=== PATIENT | female | born 1960 | race Caucasian/White ===

== ENCOUNTER 2017-06-10 17:32 | Inpatient (IN) | payer MEDICAID, OTHER ==
[~2017-06-10] VITALS: Ht 160 cm; Wt 47.2 kg
[~2017-06-10 17:32] MED LIST: QUET50XR PO; TRAZ-144 PO
[2017-06-10 19:00] LABS: BASOPHILS % (AUTO) 0.8 % (0.0-2.0); EOSINOPHILS % (AUTO) 1.5 % (1.0-6.0); HEMATOCRIT 38.4 % (36-46); HEMOGLOBIN 13.2 g/dL (12.0-16.0); LYMPHOCYTES # (AUTO) 3.6 K/uL (1.0-4.8); LYMPHOCYTES % (AUTO) 50.9 % (22.0-44.0); MEAN CORPUSCULAR HEMOGLOBIN 34.8 pg (26.0-34.0); MEAN CORPUSCULAR HGB CONC 34.3 G/dL (31.0-37.0); MEAN CORPUSCULAR VOLUME 101 fL (80-100); MONOCYTES # (AUTO) 0.5 K/uL (0.1-1.0); MONOCYTES % (AUTO) 7.6 % (2.0-9.0); NEUTROPHILS # (AUTO) 2.7 K/uL (1.8-7.7); NEUTROPHILS % (AUTO) 39.2 % (40.0-70.0); PLATELET COUNT (AUTO) 298 K/uL (150-450); RED BLOOD CELL COUNT(AUTO) 3.79 MIL/uL (4.00-5.20); RED CELL DISTRIBUTION WIDTH 13.8 % (11.5-14.5)
[2017-06-10] MEDS ORDERED: DiphenhydrAMINE HCL 50 MG/ML VIAL IM ONE (19:15)
[2017-06-10] MEDS ORDERED: LORazepam 2 MG/ML VIAL IM ONE (19:15)
[2017-06-10] MEDS ORDERED: HALOPERIDOL LACTATE 5 MG/ML VIAL IM ONE (19:15)
[2017-06-10 19:35] LABS: ANION GAP 12 mmol/L (8-16); CALCIUM, TOTAL 8.6 mg/dL (8.8-10.5); CARBON DIOXIDE 23 mmol/L (22-29); CHLORIDE 106 mmol/L (98-107); CREATININE 0.75 mg/dL (0.60-1.30); GLOMERULAR FILTR. RATE CALC > 60 mL/min (>60); POTASSIUM 3.4 mmol/L (3.5-5.1); SODIUM SERUM 141 mmol/L (136-145); UREA NITROGEN, BLOOD 12 mg/dL (7-18)
[2017-06-10 19:43] LABS: ALANINE AMINOTRANSFERASE 100 U/L (12-78); ALBUMIN 3.6 g/dL (3.4-5.0); ASPARTATE AMINOTRANSFERASE 191 U/L (15-37); BILIRUBIN,TOTAL 0.3 mg/dL (0.1-1.0); TOTAL PROTEIN, SERUM 7.8 g/dL (6.4-8.2)
[2017-06-10 20:26] LABS: RBC MORPHOLOGY COMMENT ABNORMAL RBC MORPH
[2017-06-10] MEDS ORDERED: HALOPERIDOL 5 MG TABLET PO PRN (20:45)
[2017-06-10] MEDS ORDERED: ZOLPIDEM TARTRATE 10 MG TABLET PO PRN (20:45)
[2017-06-10 21:13] LABS: CHOL/HDL RATIO 1.8 (3.9-5.7); THYROID STIMULATING HORMONE 1.03 uIU/mL (0.36-3.74)
[2017-06-10 23:00] VITALS: BP 121/57
[2017-06-11 03:00] VITALS: BP 123/74
[2017-06-11] MEDS ORDERED: POTASSIUM CHLORIDE 20 MEQ ER TABLET PO ONE (06:30)
[2017-06-11 07:11] VITALS: BP 128/60
[2017-06-11 08:11] VITALS: BP 127/76
[2017-06-11 19:00] VITALS: BP 129/75
[2017-06-11 23:01] VITALS: BP 100/61
[2017-06-12 08:25] VITALS: BP 124/81
[2017-06-12 08:43] LABS: ALANINE AMINOTRANSFERASE 74 U/L (12-78); ALBUMIN 3.3 g/dL (3.4-5.0); ANION GAP 9 mmol/L (8-16); ASPARTATE AMINOTRANSFERASE 96 U/L (15-37); BILIRUBIN,TOTAL 0.5 mg/dL (0.1-1.0); CALCIUM, TOTAL 8.7 mg/dL (8.8-10.5); CARBON DIOXIDE 27 mmol/L (22-29); CHLORIDE 104 mmol/L (98-107); CREATININE 0.57 mg/dL (0.60-1.30); GLOMERULAR FILTR. RATE CALC > 60 mL/min (>60); POTASSIUM 4.7 mmol/L (3.5-5.1); SODIUM SERUM 140 mmol/L (136-145); TOTAL PROTEIN, SERUM 7.1 g/dL (6.4-8.2); UREA NITROGEN, BLOOD 12 mg/dL (7-18)
[2017-06-12] MEDS: IBUPROFEN 400 MG TABLET PO PRN (13:44)
[2017-06-12] MEDS: LORazepam 2 MG TABLET PO PRN (15:53)
[2017-06-12 16:05] VITALS: BP 142/96
[2017-06-13 05:59] VITALS: BP 126/76
[2017-06-13] MEDS: IBUPROFEN 400 MG TABLET PO PRN ×2 (06:07→17:46)
[2017-06-13] MEDS: RisperiDONE 1 MG TABLET PO SCH ×2 (08:08→16:01)
[2017-06-13] MEDS: LORazepam 2 MG TABLET PO PRN ×2 (08:11→16:02)
[2017-06-13 08:50] VITALS: BP 127/72
[2017-06-13 10:09] LABS: APPEARANCE,URINE CLEAR (CLEAR); GLUCOSE, URINE (UA) NEGATIVE (NEGATIVE); KETONES,URINE NEGATIVE (NEGATIVE); LEUKOCYTE ESTERASE ,URINE NEGATIVE (NEGATIVE); OCCULT BLOOD,URINE NEGATIVE (NEGATIVE); PROTEIN,URINE NEGATIVE (NEGATIVE)
[2017-06-13 10:25] LABS: ADD UA MICROSCOPIC NO
[2017-06-13 16:36] VITALS: BP 110/76
[2017-06-13] MEDS ORDERED: LORazepam 2 MG TABLET PO PRN (20:45)
[2017-06-14 00:10] VITALS: BP 125/71
[2017-06-14] MEDS: ACETAMINOPHEN 325 MG TABLET PO PRN (00:12)
[2017-06-14] MEDS: LORazepam 2 MG TABLET PO PRN ×3 (02:16→18:41)
[2017-06-14 08:06] VITALS: BP 133/72
[2017-06-14] MEDS: RisperiDONE 1 MG TABLET PO SCH ×2 (08:14→16:23)
[2017-06-14] MEDS ORDERED: RISP1 PO (12:41)
[2017-06-14] MEDS: NICOTINE 14 MG/24 HOUR PATCH TD SCH (14:07)
[2017-06-14 16:07] VITALS: BP 109/58
[2017-06-15 02:49] VITALS: BP 126/78
[2017-06-15] MEDS: LORazepam 2 MG TABLET PO PRN ×3 (03:35→13:03)
[2017-06-15] MEDS: IBUPROFEN 400 MG TABLET PO PRN (03:35)
[2017-06-15] MEDS: ACETAMINOPHEN 325 MG TABLET PO PRN (06:54)
[2017-06-15 08:08] VITALS: BP 118/60
[2017-06-15] MEDS: NICOTINE 14 MG/24 HOUR PATCH TD SCH (08:17)
[2017-06-15] MEDS: RisperiDONE 1 MG TABLET PO SCH ×2 (08:17→16:09)
[2017-06-15 16:00] VITALS: BP 111/68
[2017-06-16 02:53] VITALS: BP 116/64
[2017-06-16] MEDS: IBUPROFEN 400 MG TABLET PO PRN ×2 (03:00→11:50)
[2017-06-16] MEDS: RisperiDONE 1 MG TABLET PO SCH (08:42)
[2017-06-16] MEDS: NICOTINE 14 MG/24 HOUR PATCH TD SCH (08:43)
[2017-06-16 09:31] VITALS: BP 131/95
[2017-06-16 11:45] VITALS: BP 128/85
== END 2017-06-16 18:33 | disposition home or self-care (01) | DRG 750 ==
LOC: EMS 17:36 → B3A 21:52
PROVIDERS: ADMIT Psychiatry & Neurology Psychiatry; ATTEND Psychiatry & Neurology Psychiatry
DX: F20.0 Paranoid schizophrenia (principal); R74.0 Nonspecific elevation of levels of transaminase and lactic acid dehydrogenase [LDH]; E87.6 Hypokalemia; F41.9 Anxiety disorder, unspecified; F17.210 Nicotine dependence, cigarettes, uncomplicated; F10.10 Alcohol abuse, uncomplicated; Z79.899 Other long term (current) drug therapy; Z71.6 Tobacco abuse counseling; Z71.41 Alcohol abuse counseling and surveillance of alcoholic
CPT/HCPCS: 80307; 84443; 96372; 99285; G0480; J1200; J1630; J2060

== ENCOUNTER 2017-06-27 13:37 | Inpatient (IN) | payer MEDICAID ==
[~2017-06-27] VITALS: Ht 160 cm; Wt 48.7 kg
[~2017-06-27 13:37] MED LIST changes: -QUET50XR PO; +RISP1 PO; -TRAZ-144 PO
[2017-06-27] MEDS ORDERED: HALOPERIDOL 5 MG TABLET PO PRN (14:15)
[2017-06-27 15:15] VITALS: BP 135/77
[2017-06-27 16:00] VITALS: BP 139/77
[2017-06-27] MEDS ORDERED: INFLUENZA VIRUS VACCINE QVS 2017-18 (3YR+)/PF 60 MCG/0.5 ML SYRINGE IM ONE (16:15)
[2017-06-27] MEDS: RisperiDONE 1 MG TABLET PO SCH (16:42)
[2017-06-27] MEDS: LORazepam 2 MG TABLET PO PRN (16:42)
[2017-06-27] MEDS: ACETAMINOPHEN 325 MG TABLET PO PRN (17:45)
[2017-06-28 00:15] VITALS: BP 111/62
[2017-06-28] MEDS: ACETAMINOPHEN 325 MG TABLET PO PRN ×2 (07:00→16:48)
[2017-06-28 07:59] LABS: BASOPHILS % (AUTO) 1.2 % (0.0-2.0); EOSINOPHILS % (AUTO) 1.2 % (1.0-6.0); HEMATOCRIT 37.1 % (36-46); HEMOGLOBIN 12.7 g/dL (12.0-16.0); LYMPHOCYTES # (AUTO) 2.1 K/uL (1.0-4.8); LYMPHOCYTES % (AUTO) 30.6 % (22.0-44.0); MEAN CORPUSCULAR HEMOGLOBIN 34.1 pg (26.0-34.0); MEAN CORPUSCULAR HGB CONC 34.2 G/dL (31.0-37.0); MEAN CORPUSCULAR VOLUME 100 fL (80-100); MONOCYTES # (AUTO) 0.4 K/uL (0.1-1.0); MONOCYTES % (AUTO) 5.2 % (2.0-9.0); NEUTROPHILS # (AUTO) 4.2 K/uL (1.8-7.7); NEUTROPHILS % (AUTO) 61.8 % (40.0-70.0); PLATELET COUNT (AUTO) 383 K/uL (150-450); RED BLOOD CELL COUNT(AUTO) 3.71 MIL/uL (4.00-5.20); RED CELL DISTRIBUTION WIDTH 13.6 % (11.5-14.5)
[2017-06-28 08:28] VITALS: BP 112/64
[2017-06-28 08:40] LABS: ALANINE AMINOTRANSFERASE 41 U/L (12-78); ALBUMIN 2.9 g/dL (3.4-5.0); ALKALINE PHOSPHATASE 83 U/L (46-116); ANION GAP 6 mmol/L (8-16); ASPARTATE AMINOTRANSFERASE 37 U/L (15-37); BILIRUBIN,TOTAL 0.2 mg/dL (0.1-1.0); CALCIUM, TOTAL 8.5 mg/dL (8.8-10.5); CARBON DIOXIDE 30 mmol/L (22-29); CHLORIDE 105 mmol/L (98-107); CHOL/HDL RATIO 2.5 (3.9-5.7); CHOLESTEROL 155 mg/dL (131-200); CREATININE 0.61 mg/dL (0.60-1.30); FREE T4 (FREE THYROXINE) 0.88 ng/dL (0.76-1.46); GLOMERULAR FILTR. RATE CALC > 60 mL/min (>60); GLUCOSE,RANDOM 94 mg/dL (70-110); HDL CHOLESTEROL 62 mg/dL (40-60); LDL CHOL (CALC.) 69 mg/dL (0-130); POTASSIUM 4.1 mmol/L (3.5-5.1); SODIUM SERUM 141 mmol/L (136-145); THYROID STIMULATING HORMONE 1.04 uIU/mL (0.36-3.74); TOTAL PROTEIN, SERUM 6.6 g/dL (6.4-8.2); TRIGLYCERIDES 120 mg/dL (15-150); UREA NITROGEN, BLOOD 12 mg/dL (7-18)
[2017-06-28] MEDS: RisperiDONE 1 MG TABLET PO SCH ×2 (11:42→16:08)
[2017-06-28 16:20] VITALS: BP 118/63
[2017-06-28 17:55] VITALS: BP 111/68
[2017-06-29 02:00] VITALS: BP 118/71
[2017-06-29] MEDS: ZOLPIDEM TARTRATE 10 MG TABLET PO PRN (02:04)
[2017-06-29] MEDS: ACETAMINOPHEN 325 MG TABLET PO PRN ×3 (02:04→16:01)
[2017-06-29] MEDS: RisperiDONE 1 MG TABLET PO SCH ×2 (08:16→16:01)
[2017-06-29] MEDS: NICOTINE 14 MG/24 HOUR PATCH TD SCH (08:16)
[2017-06-29 08:24] VITALS: BP 128/70
[2017-06-29 16:06] VITALS: BP 114/70
[2017-06-29] MEDS: LORazepam 2 MG TABLET PO PRN (20:22)
[2017-06-30 00:15] VITALS: BP 111/65
[2017-06-30 08:00] VITALS: BP 103/61
[2017-06-30] MEDS: NICOTINE 14 MG/24 HOUR PATCH TD SCH (08:22)
[2017-06-30] MEDS: RisperiDONE 1 MG TABLET PO SCH ×2 (08:22→16:00)
[2017-06-30] MEDS: ACETAMINOPHEN 325 MG TABLET PO PRN ×2 (08:32→16:01)
[2017-06-30 16:41] VITALS: BP 122/77
[2017-06-30] MEDS: LORazepam 2 MG TABLET PO PRN (19:27)
[2017-06-30] MEDS: ZOLPIDEM TARTRATE 10 MG TABLET PO PRN (20:58)
[2017-07-01 00:15] VITALS: BP 108/62
[2017-07-01] MEDS: ACETAMINOPHEN 325 MG TABLET PO PRN ×2 (06:21→11:08)
[2017-07-01] MEDS: NICOTINE 14 MG/24 HOUR PATCH TD SCH (08:06)
[2017-07-01] MEDS: RisperiDONE 1 MG TABLET PO SCH ×2 (08:06→16:03)
[2017-07-01 08:16] VITALS: BP 119/67
[2017-07-01] MEDS: LORazepam 2 MG TABLET PO PRN (16:03)
[2017-07-02 00:49] VITALS: BP 128/70
[2017-07-02] MEDS: ACETAMINOPHEN 325 MG TABLET PO PRN (00:49)
[2017-07-02] MEDS: LORazepam 2 MG TABLET PO PRN ×2 (01:03→08:55)
[2017-07-02 08:12] VITALS: BP 109/64
[2017-07-02] MEDS: NICOTINE 14 MG/24 HOUR PATCH TD SCH (08:55)
[2017-07-02] MEDS: RisperiDONE 1 MG TABLET PO SCH ×2 (08:55→16:06)
[2017-07-02 16:04] VITALS: BP 106/60
[2017-07-02] MEDS: ZOLPIDEM TARTRATE 10 MG TABLET PO PRN (21:36)
[2017-07-03 00:05] VITALS: BP 112/86
[2017-07-03] MEDS: ACETAMINOPHEN 325 MG TABLET PO PRN (01:51)
== END 2017-07-03 07:30 | disposition home or self-care (01) | DRG 750 ==
LOC: B2S 16:03
PROVIDERS: ADMIT Psychiatry & Neurology Psychiatry; ATTEND Psychiatry & Neurology Psychiatry
DX: F25.9 Schizoaffective disorder, unspecified (principal); F32.9 Major depressive disorder, single episode, unspecified; F41.9 Anxiety disorder, unspecified; F10.10 Alcohol abuse, uncomplicated; F17.200 Nicotine dependence, unspecified, uncomplicated; Z71.41 Alcohol abuse counseling and surveillance of alcoholic; Z71.6 Tobacco abuse counseling
CPT/HCPCS: 84439; 84443; 87081; 90471

== ENCOUNTER 2017-08-01 08:51 | Inpatient (IN) | payer MEDICAID, OTHER ==
[~2017-08-01] VITALS: Ht 160 cm; Wt 49.0 kg
[2017-08-01] MEDS ORDERED: LORazepam 2 MG/ML VIAL IM ONE (10:00)
[2017-08-01] MEDS ORDERED: HALOPERIDOL LACTATE 5 MG/ML VIAL IM ONE (10:00)
[2017-08-01 10:44] LABS: BASOPHILS % (AUTO) 0.9 % (0.0-2.0); HEMATOCRIT 34.4 % (36-46); HEMOGLOBIN 11.8 g/dL (12.0-16.0); LYMPHOCYTES # (AUTO) 2.5 K/uL (1.0-4.8); LYMPHOCYTES % (AUTO) 52.6 % (22.0-44.0); MEAN CORPUSCULAR HEMOGLOBIN 32.8 pg (26.0-34.0); MEAN CORPUSCULAR HGB CONC 34.4 G/dL (31.0-37.0); MEAN CORPUSCULAR VOLUME 95 fL (80-100); MONOCYTES # (AUTO) 0.3 K/uL (0.1-1.0); MONOCYTES % (AUTO) 6.4 % (2.0-9.0); NEUTROPHILS # (AUTO) 1.8 K/uL (1.8-7.7); NEUTROPHILS % (AUTO) 39.1 % (40.0-70.0); PLATELET COUNT (AUTO) 263 K/uL (150-450); RED BLOOD CELL COUNT(AUTO) 3.61 MIL/uL (4.00-5.20); RED CELL DISTRIBUTION WIDTH 13.5 % (11.5-14.5)
[2017-08-01 10:53] LABS: ANION GAP 14 mmol/L (8-16); CALCIUM, TOTAL 8.4 mg/dL (8.8-10.5); CARBON DIOXIDE 21 mmol/L (22-29); CHLORIDE 105 mmol/L (98-107); CREATININE 0.49 mg/dL (0.60-1.30); GLOMERULAR FILTR. RATE CALC > 60 mL/min (>60); GLUCOSE,RANDOM 89 mg/dL (70-110); POTASSIUM 3.5 mmol/L (3.5-5.1); SODIUM SERUM 140 mmol/L (136-145); UREA NITROGEN, BLOOD 11 mg/dL (7-18)
[2017-08-01] MEDS ORDERED: ZOLPIDEM TARTRATE 10 MG TABLET PO PRN (11:00)
[2017-08-01 11:01] LABS: ALANINE AMINOTRANSFERASE 45 U/L (12-78); ALBUMIN 3.4 g/dL (3.4-5.0); ALKALINE PHOSPHATASE 106 U/L (46-116); ASPARTATE AMINOTRANSFERASE 52 U/L (15-37); BILIRUBIN,TOTAL 0.3 mg/dL (0.1-1.0); TOTAL PROTEIN, SERUM 7.2 g/dL (6.4-8.2)
[2017-08-01 16:17] VITALS: BP 112/69
[2017-08-02 05:31] VITALS: BP 129/75
[2017-08-02] MEDS ORDERED: INFLUENZA VIRUS VACCINE QVS 2017-18 (3YR+)/PF 60 MCG/0.5 ML SYRINGE IM ONE (05:45)
[2017-08-02] MEDS ORDERED: -PHARMACY VACCINE NOTE- MISC ONE (05:45)
[2017-08-02] MEDS: LORazepam 2 MG TABLET PO PRN ×2 (08:00→17:32)
[2017-08-02] MEDS: HALOPERIDOL 5 MG TABLET PO PRN (08:00)
[2017-08-02 08:27] VITALS: BP 136/75
[2017-08-02] MEDS: RisperiDONE 1 MG TABLET PO SCH ×2 (08:35→16:13)
[2017-08-02 16:01] VITALS: BP 110/70
[2017-08-03 05:39] VITALS: BP 123/67
[2017-08-03 08:21] LABS: CHOL/HDL RATIO 2.3 (3.9-5.7)
[2017-08-03] MEDS: RisperiDONE 1 MG TABLET PO SCH ×2 (08:32→17:09)
[2017-08-03] MEDS: NICOTINE 14 MG/24 HOUR PATCH TD SCH (14:01)
[2017-08-03 16:28] VITALS: BP 122/69
[2017-08-03] MEDS: HALOPERIDOL 5 MG TABLET PO PRN (17:09)
[2017-08-03] MEDS: LORazepam 2 MG TABLET PO PRN (17:09)
[2017-08-04 05:29] VITALS: BP 118/80
[2017-08-04] MEDS: NICOTINE 14 MG/24 HOUR PATCH TD SCH (08:16)
[2017-08-04] MEDS: LORazepam 2 MG TABLET PO PRN ×2 (08:16→16:17)
[2017-08-04] MEDS: RisperiDONE 1 MG TABLET PO SCH ×2 (08:16→16:16)
[2017-08-04 08:50] VITALS: BP 126/72
[2017-08-04 16:27] VITALS: BP 125/65
[2017-08-05 05:09] VITALS: BP 116/61
[2017-08-05] MEDS: LORazepam 2 MG TABLET PO PRN ×3 (06:42→20:46)
[2017-08-05 08:18] VITALS: BP 126/81
[2017-08-05] MEDS: RisperiDONE 1 MG TABLET PO SCH ×2 (09:02→17:08)
[2017-08-05] MEDS: NICOTINE 14 MG/24 HOUR PATCH TD SCH (09:03)
[2017-08-05 16:11] VITALS: BP 116/68
[2017-08-05] MEDS: HALOPERIDOL 5 MG TABLET PO PRN (17:08)
[2017-08-06 06:29] VITALS: BP 105/61
[2017-08-06 08:03] VITALS: BP 102/60
[2017-08-06] MEDS: RisperiDONE 1 MG TABLET PO SCH ×2 (08:27→16:33)
[2017-08-06] MEDS: DIVALPROEX SODIUM 500 MG DR TABLET PO SCH ×2 (08:27→16:33)
[2017-08-06] MEDS: NICOTINE 14 MG/24 HOUR PATCH TD SCH (08:28)
[2017-08-06] MEDS: LORazepam 2 MG TABLET PO PRN ×2 (10:07→16:33)
[2017-08-06] MEDS ORDERED: LORazepam 2 MG/ML VIAL IM ONE (12:45)
[2017-08-06] MEDS ORDERED: DiphenhydrAMINE HCL 50 MG/ML VIAL IM ONE (12:45)
[2017-08-06] MEDS ORDERED: HALOPERIDOL LACTATE 5 MG/ML VIAL IM ONE (12:45)
[2017-08-06 13:15] VITALS: BP 115/70
[2017-08-06 16:06] VITALS: BP 102/62
[2017-08-06 16:30] VITALS: BP 110/70
[2017-08-06] MEDS: HALOPERIDOL 5 MG TABLET PO PRN (16:33)
[2017-08-07 06:23] VITALS: BP 110/70
[2017-08-07 08:20] VITALS: BP 112/69
[2017-08-07] MEDS: RisperiDONE 1 MG TABLET PO SCH ×2 (08:24→16:56)
[2017-08-07] MEDS: LORazepam 2 MG TABLET PO PRN (08:25)
[2017-08-07] MEDS: DIVALPROEX SODIUM 500 MG DR TABLET PO SCH ×2 (08:25→16:56)
[2017-08-07] MEDS: NICOTINE 14 MG/24 HOUR PATCH TD SCH (08:25)
[2017-08-07 16:12] VITALS: BP 102/60
[2017-08-08 05:10] VITALS: BP 107/60
[2017-08-08 08:24] VITALS: BP 106/63
[2017-08-08] MEDS: NICOTINE 14 MG/24 HOUR PATCH TD SCH (08:46)
[2017-08-08] MEDS: RisperiDONE 1 MG TABLET PO SCH ×2 (08:46→16:07)
[2017-08-08] MEDS: LORazepam 2 MG TABLET PO PRN (08:47)
[2017-08-08] MEDS: DIVALPROEX SODIUM 500 MG DR TABLET PO SCH ×2 (08:47→16:06)
[2017-08-08 16:02] VITALS: BP 110/67
[2017-08-09 05:51] VITALS: BP 107/89
[2017-08-09] MEDS: LORazepam 2 MG TABLET PO PRN ×2 (06:31→11:35)
[2017-08-09 07:57] VITALS: BP 110/70
[2017-08-09] MEDS: RisperiDONE 1 MG TABLET PO SCH ×2 (08:19→16:14)
[2017-08-09] MEDS: DIVALPROEX SODIUM 500 MG DR TABLET PO SCH ×2 (08:19→16:14)
[2017-08-09] MEDS: NICOTINE 14 MG/24 HOUR PATCH TD SCH (08:20)
[2017-08-09 09:27] VITALS: BP 110/70
[2017-08-09 16:14] VITALS: BP 108/72
[2017-08-10 04:31] VITALS: BP 112/77
[2017-08-10 08:25] VITALS: BP 131/88
[2017-08-10] MEDS: RisperiDONE 1 MG TABLET PO SCH ×2 (08:27→16:44)
[2017-08-10] MEDS: NICOTINE 14 MG/24 HOUR PATCH TD SCH (08:27)
[2017-08-10] MEDS: DIVALPROEX SODIUM 500 MG DR TABLET PO SCH ×2 (08:28→16:44)
[2017-08-10] MEDS: LORazepam 2 MG TABLET PO PRN ×2 (08:28→16:44)
[2017-08-10] MEDS: HALOPERIDOL 5 MG TABLET PO PRN (12:59)
[2017-08-10 16:03] VITALS: BP 120/71
[2017-08-11 05:46] VITALS: BP 140/88
[2017-08-11 06:37] VITALS: BP 105/63
[2017-08-11 08:41] VITALS: BP 119/62
[2017-08-11] MEDS: HALOPERIDOL 5 MG TABLET PO PRN (08:44)
[2017-08-11] MEDS: NICOTINE 14 MG/24 HOUR PATCH TD SCH (08:44)
[2017-08-11] MEDS: DIVALPROEX SODIUM 500 MG DR TABLET PO SCH ×2 (08:44→16:13)
[2017-08-11] MEDS: RisperiDONE 1 MG TABLET PO SCH ×2 (08:45→16:13)
[2017-08-11] MEDS: LORazepam 2 MG TABLET PO PRN (08:45)
[2017-08-11 16:32] VITALS: BP 121/75
[2017-08-12 06:59] VITALS: BP 113/62
[2017-08-12 08:41] VITALS: BP 107/67
[2017-08-12] MEDS: LORazepam 2 MG TABLET PO PRN ×2 (09:02→16:56)
[2017-08-12] MEDS: RisperiDONE 1 MG TABLET PO SCH ×2 (09:02→17:30)
[2017-08-12] MEDS: DIVALPROEX SODIUM 500 MG DR TABLET PO SCH ×2 (09:02→17:30)
[2017-08-12] MEDS: NICOTINE 14 MG/24 HOUR PATCH TD SCH (09:02)
[2017-08-12] MEDS: HALOPERIDOL 5 MG TABLET PO PRN ×2 (09:53→16:56)
[2017-08-12 16:35] VITALS: BP 120/75
[2017-08-12] MEDS ORDERED: RISP3 PO (18:45)
[2017-08-12] MEDS ORDERED: DIVA500T35 PO (18:45)
[2017-08-13 07:00] VITALS: BP 115/72
[2017-08-13 08:00] VITALS: BP 115/70
[2017-08-13] MEDS: RisperiDONE 1 MG TABLET PO SCH (08:26)
[2017-08-13] MEDS: NICOTINE 14 MG/24 HOUR PATCH TD SCH (08:26)
[2017-08-13] MEDS: DIVALPROEX SODIUM 500 MG DR TABLET PO SCH (08:26)
== END 2017-08-13 13:30 | disposition home or self-care (01) | DRG 750 ==
LOC: EMS 08:53 → B3A 12:20
PROVIDERS: ADMIT Psychiatry & Neurology Psychiatry; ATTEND Psychiatry & Neurology Psychiatry
PROC: 3E0234Z Introduction of Serum, Toxoid and Vaccine into Muscle, Percutaneous Approach (ICD-10-PCS; principal; 2017-08-02)
DX: F25.0 Schizoaffective disorder, bipolar type (principal); Z59.0 Homelessness; D64.9 Anemia, unspecified; F10.10 Alcohol abuse, uncomplicated; F17.210 Nicotine dependence, cigarettes, uncomplicated; F41.9 Anxiety disorder, unspecified; F19.10 Other psychoactive substance abuse, uncomplicated; R00.0 Tachycardia, unspecified; Z23 Encounter for immunization
CPT/HCPCS: 87081; 96372; 99291; G0480; J1200; J1630; J2060

== ENCOUNTER 2017-09-11 02:51 | Emergency (ER) | payer MEDICAID, OTHER ==
[~2017-09-11] VITALS: Ht 152.4 cm; Wt 50.0 kg
[~2017-09-11 02:51] MED LIST changes: +DIVA500T35 PO; -RISP1 PO; +RISP3 PO
[2017-09-11] MEDS ORDERED: DIVALPROEX SODIUM 500 MG ER TABLET PO ONE (03:45)
[2017-09-11] MEDS ORDERED: RisperiDONE 1 MG TABLET PO ONE (03:45)
[2017-09-11 04:26] VITALS: BP 130/69
== END 2017-09-11 04:28 | disposition home or self-care (01) ==
LOC: EMS 02:54
DX: F20.9 Schizophrenia, unspecified (principal); F41.9 Anxiety disorder, unspecified; F32.9 Major depressive disorder, single episode, unspecified; F17.210 Nicotine dependence, cigarettes, uncomplicated; Z76.0 Encounter for issue of repeat prescription
CPT/HCPCS: 99284

== ENCOUNTER 2017-10-17 16:39 | Inpatient (IN) | payer MEDICAID, OTHER ==
[~2017-10-17] VITALS: Ht 160 cm; Wt 50.1 kg
[2017-10-17] MEDS ORDERED: LORazepam 2 MG TABLET PO ONE (17:15)
[2017-10-17] MEDS ORDERED: DiphenhydrAMINE HCL 50 MG CAPSULE PO ONE (17:15)
[2017-10-17] MEDS ORDERED: HALOPERIDOL 5 MG TABLET PO ONE (17:15)
[2017-10-17 17:29] LABS: BASOPHILS % (AUTO) 0.9 % (0.0-2.0); EOSINOPHILS % (AUTO) 0.8 % (1.0-6.0); HEMATOCRIT 37.5 % (36-46); HEMOGLOBIN 12.8 g/dL (12.0-16.0); LYMPHOCYTES % (AUTO) 51.3 % (22.0-44.0); MEAN CORPUSCULAR HEMOGLOBIN 32.2 pg (26.0-34.0); MEAN CORPUSCULAR HGB CONC 34.3 G/dL (31.0-37.0); MEAN CORPUSCULAR VOLUME 94 fL (80-100); MONOCYTES # (AUTO) 0.4 K/uL (0.1-1.0); NEUTROPHILS # (AUTO) 2.3 K/uL (1.8-7.7); PLATELET COUNT (AUTO) 291 K/uL (150-450); RED BLOOD CELL COUNT(AUTO) 3.98 MIL/uL (4.00-5.20); RED CELL DISTRIBUTION WIDTH 15.2 % (11.5-14.5)
[2017-10-17 17:35] LABS: ANION GAP 10 mmol/L (8-16); CALCIUM, TOTAL 8.3 mg/dL (8.8-10.5); CARBON DIOXIDE 23 mmol/L (22-29); CHLORIDE 105 mmol/L (98-107); CREATININE 0.55 mg/dL (0.60-1.30); GLOMERULAR FILTR. RATE CALC > 60 mL/min (>60); GLUCOSE,RANDOM 97 mg/dL (70-110); POTASSIUM 3.5 mmol/L (3.5-5.1); SODIUM SERUM 138 mmol/L (136-145); UREA NITROGEN, BLOOD 8 mg/dL (7-18)
[2017-10-17 17:41] LABS: ALANINE AMINOTRANSFERASE 75 U/L (12-78); ALBUMIN 3.6 g/dL (3.4-5.0); ALKALINE PHOSPHATASE 106 U/L (46-116); ASPARTATE AMINOTRANSFERASE 92 U/L (15-37); BILIRUBIN,TOTAL 0.2 mg/dL (0.1-1.0)
[2017-10-17 17:42] LABS: VALPROIC ACID < 3 mcg/mL (50-100)
[2017-10-17 17:45] LABS: AMPHET/METH SCREEN,URINE NEGATIVE (NEGATIVE); BARBITURATE SCREEN, URINE NEGATIVE (NEGATIVE); BENZODIAZEPINES SCREEN,URINE NEGATIVE (NEGATIVE); CANNABINOID SCREEN,URINE POSITIVE (NEGATIVE); COCAINE SCREEN,URINE NEGATIVE (NEGATIVE); METHADONE SCREEN, URINE NEGATIVE (NEGATIVE); OPIATE SCREEN,URINE NEGATIVE (NEGATIVE); PHENCYCLIDINE SCREEN,URINE NEGATIVE (NEGATIVE)
[2017-10-17] MEDS ORDERED: HALOPERIDOL 5 MG TABLET PO PRN (19:15)
[2017-10-17] MEDS ORDERED: ZOLPIDEM TARTRATE 10 MG TABLET PO PRN (19:15)
[2017-10-17 20:10] VITALS: BP 122/69
[2017-10-17 20:34] VITALS: BP 122/69
[2017-10-17 21:10] VITALS: BP 119/70
[2017-10-17 22:10] VITALS: BP 125/72
[2017-10-17] MEDS ORDERED: CloNIDine HCL 0.1 MG TABLET PO PRN (23:00)
[2017-10-17 23:10] VITALS: BP 127/75
[2017-10-18] VITALS (8 sets, daily range): BP systolic 116–137; BP diastolic 66–84
[2017-10-18] MEDS ORDERED: PNEUMOCOCCAL VACCINE POLYVALENT 0.5 ML VIAL [PPSV23] IM ONE (07:00)
[2017-10-18] MEDS ORDERED: ACETAMINOPHEN 325 MG TABLET PO PRN (08:30)
[2017-10-18] MEDS ORDERED: IBUPROFEN 400 MG TABLET PO PRN (08:30)
[2017-10-18] MEDS: LORazepam 2 MG TABLET PO PRN (16:27)
[2017-10-18] MEDS: DIVALPROEX SODIUM 500 MG ER TABLET PO SCH (17:11)
[2017-10-18] MEDS: RisperiDONE 3 MG TABLET PO SCH (17:11)
[2017-10-19 06:07] VITALS: BP 130/82
[2017-10-19 06:10] VITALS: BP 130/82
[2017-10-19 08:18] VITALS: BP 101/56
[2017-10-19] MEDS: LORazepam 2 MG TABLET PO PRN (08:34)
[2017-10-19] MEDS: RisperiDONE 3 MG TABLET PO SCH ×2 (08:34→17:10)
[2017-10-19] MEDS: DIVALPROEX SODIUM 500 MG ER TABLET PO SCH ×2 (08:34→17:10)
[2017-10-19 08:40] LABS: HEMOGLOBIN A1C 5.4 % (4.5-6.2)
[2017-10-19 09:03] LABS: CHOL/HDL RATIO 2.5 (3.9-5.7); THYROID STIMULATING HORMONE 0.99 uIU/mL (0.36-3.74)
[2017-10-19 16:00] VITALS: BP 114/66
[2017-10-19 16:24] VITALS: BP 114/66
[2017-10-20 06:13] VITALS: BP 111/64
[2017-10-20 06:14] VITALS: BP 111/64
[2017-10-20 08:00] VITALS: BP 127/64
[2017-10-20 09:16] VITALS: BP 127/64
[2017-10-20] MEDS: DIVALPROEX SODIUM 500 MG ER TABLET PO SCH ×2 (09:36→16:21)
[2017-10-20] MEDS: RisperiDONE 3 MG TABLET PO SCH ×2 (09:36→16:22)
[2017-10-20] MEDS: NICOTINE 14 MG/24 HOUR PATCH TD SCH (09:52)
[2017-10-20 16:03] VITALS: BP 146/77
[2017-10-20 17:44] VITALS: BP 138/76
[2017-10-21 06:04] VITALS: BP 130/72
[2017-10-21 08:20] VITALS: BP 90/60
[2017-10-21 08:22] VITALS: BP 90/60
[2017-10-21] MEDS: RisperiDONE 3 MG TABLET PO SCH (08:35)
[2017-10-21] MEDS: DIVALPROEX SODIUM 500 MG ER TABLET PO SCH (08:35)
[2017-10-21] MEDS: NICOTINE 14 MG/24 HOUR PATCH TD SCH (08:36)
== END 2017-10-21 13:15 | disposition home or self-care (01) | DRG 750 ==
LOC: EMS 16:40 → B3A 18:37
PROVIDERS: ADMIT Psychiatry & Neurology Psychiatry; ATTEND Psychiatry & Neurology Psychiatry
DX: F20.9 Schizophrenia, unspecified (principal); Z91.14 Patient's other noncompliance with medication regimen; I10 Essential (primary) hypertension; Z59.0 Homelessness; F10.10 Alcohol abuse, uncomplicated; Z28.21 Immunization not carried out because of patient refusal; Y90.8 Blood alcohol level of 240 mg/100 ml or more; F12.10 Cannabis abuse, uncomplicated; G47.00 Insomnia, unspecified; Z79.899 Other long term (current) drug therapy; F32.9 Major depressive disorder, single episode, unspecified; F41.9 Anxiety disorder, unspecified; R06.83 Snoring; F17.210 Nicotine dependence, cigarettes, uncomplicated; Z71.41 Alcohol abuse counseling and surveillance of alcoholic; Z71.51 Drug abuse counseling and surveillance of drug abuser
CPT/HCPCS: 83036; 84443; 99285; G0480

== ENCOUNTER 2018-10-27 08:44 | Emergency (ER) | payer MEDICAID, OTHER ==
[~2018-10-27] VITALS: Ht 154.9 cm; Wt 56.8 kg
[~2018-10-27 08:44] MED LIST changes: +DIVA-78 PO; -DIVA500T35 PO
[2018-10-27] MEDS ORDERED: QUET200T PO (09:00)
[2018-10-27 09:20] LABS: BASOPHILS % (AUTO) 0.5 % (0.0-2.0); EOSINOPHILS % (AUTO) 0.2 % (1.0-6.0); HEMATOCRIT 41.5 % (36-46); HEMOGLOBIN 14.1 g/dL (12.0-16.0); LYMPHOCYTES # (AUTO) 1.9 K/uL (1.0-4.8); LYMPHOCYTES % (AUTO) 21.2 % (22.0-44.0); MEAN CORPUSCULAR VOLUME 94 fL (80-100); MONOCYTES # (AUTO) 0.5 K/uL (0.1-1.0); MONOCYTES % (AUTO) 5.8 % (2.0-9.0); NEUTROPHILS # (AUTO) 6.4 K/uL (1.8-7.7); NEUTROPHILS % (AUTO) 72.3 % (40.0-70.0); PLATELET COUNT (AUTO) 342 K/uL (150-450); RED BLOOD CELL COUNT(AUTO) 4.41 MIL/uL (4.00-5.20); RED CELL DISTRIBUTION WIDTH 17.2 % (11.5-14.5)
[2018-10-27 09:36] LABS: ANION GAP 15 mmol/L (8-16); CALCIUM, TOTAL 8.9 mg/dL (8.8-10.5); CARBON DIOXIDE 22 mmol/L (22-29); CHLORIDE 102 mmol/L (98-107); CREATININE 0.55 mg/dL (0.60-1.30); GLOMERULAR FILTR. RATE CALC > 60 mL/min (>60); GLUCOSE,RANDOM 96 mg/dL (70-110); POTASSIUM 3.6 mmol/L (3.5-5.1); SODIUM SERUM 139 mmol/L (136-145); UREA NITROGEN, BLOOD 8 mg/dL (7-18)
[2018-10-27 09:39] LABS: ALANINE AMINOTRANSFERASE 86 U/L (12-78); ALBUMIN 3.8 g/dL (3.4-5.0); ALKALINE PHOSPHATASE 103 U/L (46-116); ASPARTATE AMINOTRANSFERASE 150 U/L (15-37); BILIRUBIN,TOTAL 0.5 mg/dL (0.1-1.0); LIPASE 89 U/L (73-393); TOTAL PROTEIN, SERUM 8.5 g/dL (6.4-8.2)
[2018-10-27 09:40] LABS: VALPROIC ACID < 3 mcg/mL (50-100)
[2018-10-27 09:46] LABS: APPEARANCE,URINE CLOUDY (CLEAR); BILIRUBIN,URINE NEGATIVE (NEGATIVE); GLUCOSE, URINE (UA) NEGATIVE (NEGATIVE); KETONES,URINE TRACE mg/dL (NEGATIVE); LEUKOCYTE ESTERASE ,URINE LARGE (NEGATIVE); NITRATE,URINE NEGATIVE (NEGATIVE); OCCULT BLOOD,URINE TRACE (NEGATIVE); PH,URINE 6.5 (5.0-8.0); PROTEIN,URINE POS 1+ (NEGATIVE)
[2018-10-27 09:50] LABS: AMPHET/METH SCREEN,URINE NEGATIVE (NEGATIVE); BARBITURATE SCREEN, URINE NEGATIVE (NEGATIVE); BENZODIAZEPINES SCREEN,URINE NEGATIVE (NEGATIVE); CANNABINOID SCREEN,URINE POSITIVE (NEGATIVE); COCAINE SCREEN,URINE NEGATIVE (NEGATIVE); METHADONE SCREEN, URINE NEGATIVE (NEGATIVE); OPIATE SCREEN,URINE NEGATIVE (NEGATIVE)
[2018-10-27 09:53] LABS: PHENCYCLIDINE SCREEN,URINE NEGATIVE (NEGATIVE)
[2018-10-27 09:57] LABS: BACTERIA,URINE Many /HPF (None Seen); RBC,URINE 0-2 /HPF (0-2); WBC,URINE >100 /HPF (0-5)
[2018-10-27 09:58] LABS: SQUAMOUS EPITHELIAL CELL,UR Few /LPF (None Seen)
[2018-10-27] MEDS ORDERED: SULFAMETHOX/TRIMETH DS 800-160 MG/TABLET PO ONE (11:15)
[2018-10-27] MEDS ORDERED: LORazepam 1 MG TABLET PO ONE (11:15)
[2018-10-27 12:40] VITALS: BP 148/85
== END 2018-10-27 12:59 | disposition home or self-care (01) ==
LOC: EMS 08:45
DX: N39.0 Urinary tract infection, site not specified (principal); F20.9 Schizophrenia, unspecified; F41.9 Anxiety disorder, unspecified; F31.9 Bipolar disorder, unspecified; F17.210 Nicotine dependence, cigarettes, uncomplicated; F12.10 Cannabis abuse, uncomplicated; Z79.899 Other long term (current) drug therapy
CPT/HCPCS: 87086; 93005; 99406

== ENCOUNTER 2019-10-30 08:37 | Inpatient (IN) | payer MEDICAID, OTHER ==
[~2019-10-30] VITALS: Ht 160 cm; Wt 60.4 kg
[~2019-10-30 08:37] MED LIST changes: +QUET200T PO
[2019-10-30] MEDS ORDERED: LURA20TA PO (08:58)
[2019-10-30] MEDS ORDERED: LORazepam 2 MG TABLET PO ONE (09:45)
[2019-10-30] MEDS ORDERED: HALOPERIDOL 5 MG TABLET PO ONE (09:45)
[2019-10-30 12:09] LABS: BASOPHILS % (AUTO) 0.6 % (0.0-2.0); EOSINOPHILS % (AUTO) 1.2 % (1.0-6.0); HEMATOCRIT 41.8 % (36-46); HEMOGLOBIN 14.3 g/dL (12.0-16.0); LYMPHOCYTES # (AUTO) 2.4 K/uL (1.0-4.8); LYMPHOCYTES % (AUTO) 44.5 % (22.0-44.0); MEAN CORPUSCULAR HEMOGLOBIN 32.6 pg (26.0-34.0); MEAN CORPUSCULAR HGB CONC 34.2 G/dL (31.0-37.0); MEAN CORPUSCULAR VOLUME 95 fL (80-100); MONOCYTES # (AUTO) 0.4 K/uL (0.1-1.0); MONOCYTES % (AUTO) 7.2 % (2.0-9.0); NEUTROPHILS # (AUTO) 2.5 K/uL (1.8-7.7); NEUTROPHILS % (AUTO) 46.5 % (40.0-70.0); PLATELET COUNT (AUTO) 283 K/uL (150-450); RED BLOOD CELL COUNT(AUTO) 4.38 MIL/uL (4.00-5.20); RED CELL DISTRIBUTION WIDTH 14.4 % (11.5-14.5)
[2019-10-30 12:18] LABS: ANION GAP 11 mmol/L (8-16); CALCIUM, TOTAL 8.7 mg/dL (8.8-10.5); CARBON DIOXIDE 24 mmol/L (22-29); CHLORIDE 103 mmol/L (98-107); CREATININE 0.48 mg/dL (0.60-1.30); GLOMERULAR FILTR. RATE CALC > 60 mL/min (>60); GLUCOSE,RANDOM 100 mg/dL (70-110); POTASSIUM 3.3 mmol/L (3.5-5.1); SODIUM SERUM 138 mmol/L (136-145); UREA NITROGEN, BLOOD 5 mg/dL (7-18)
[2019-10-30 12:26] LABS: ALANINE AMINOTRANSFERASE 50 U/L (12-78); ALBUMIN 3.5 g/dL (3.4-5.0); ALKALINE PHOSPHATASE 102 U/L (46-116); ASPARTATE AMINOTRANSFERASE 42 U/L (15-37); BILIRUBIN,TOTAL 0.5 mg/dL (0.1-1.0); TOTAL PROTEIN, SERUM 7.1 g/dL (6.4-8.2)
[2019-10-30] MEDS ORDERED: POTASSIUM CHLORIDE 20 MEQ ER TABLET PO ONE (16:15)
[2019-10-30 16:25] LABS: APPEARANCE,URINE CLEAR (CLEAR); BILIRUBIN,URINE NEGATIVE (NEGATIVE); GLUCOSE, URINE (UA) NEGATIVE (NEGATIVE); KETONES,URINE NEGATIVE (NEGATIVE); LEUKOCYTE ESTERASE ,URINE LARGE (NEGATIVE); NITRATE,URINE NEGATIVE (NEGATIVE); OCCULT BLOOD,URINE NEGATIVE (NEGATIVE); PROTEIN,URINE NEGATIVE (NEGATIVE); UROBILINOGEN,URINE 0.2 mg/dL (<=1.0)
[2019-10-30 16:30] LABS: AMPHET/METH SCREEN,URINE NEGATIVE (NEGATIVE); BARBITURATE SCREEN, URINE NEGATIVE (NEGATIVE); BENZODIAZEPINES SCREEN,URINE NEGATIVE (NEGATIVE); CANNABINOID SCREEN,URINE POSITIVE (NEGATIVE); COCAINE SCREEN,URINE NEGATIVE (NEGATIVE); METHADONE SCREEN, URINE NEGATIVE (NEGATIVE); OPIATE SCREEN,URINE NEGATIVE (NEGATIVE); PHENCYCLIDINE SCREEN,URINE NEGATIVE (NEGATIVE)
[2019-10-30] MEDS ORDERED: HALOPERIDOL 5 MG TABLET PO PRN (16:30)
[2019-10-30 16:47] LABS: BACTERIA,URINE Few /HPF (None Seen); RBC,URINE 0-2 /HPF (0-2); SQUAMOUS EPITHELIAL CELL,UR Moderate /LPF (None Seen); WBC,URINE 26-50 /HPF (0-5)
[2019-10-30 19:40] VITALS: BP 123/78
[2019-10-30] MEDS ORDERED: IBUPROFEN 800 MG TABLET PO PRN (20:45)
[2019-10-30] MEDS: NICOTINE 7 MG/24 HOUR PATCH TD SCH (21:24)
[2019-10-31] MEDS: ZOLPIDEM TARTRATE 10 MG TABLET PO PRN ×2 (00:01→22:17)
[2019-10-31] MEDS: LORazepam 2 MG TABLET PO PRN (00:06)
[2019-10-31] MEDS ORDERED: PNEUMOCOCCAL VACCINE POLYVALENT 0.5 ML VIAL [PPSV23] IM ONE (01:15)
[2019-10-31 07:29] LABS: CHOL/HDL RATIO 2.8 (3.9-5.7); FREE T4 (FREE THYROXINE) 1.29 ng/dL (0.76-1.46); THYROID STIMULATING HORMONE 0.8 uIU/mL (0.36-3.74)
[2019-10-31] MEDS: NICOTINE 7 MG/24 HOUR PATCH TD SCH (08:32)
[2019-10-31 09:27] VITALS: BP 119/72
[2019-10-31] MEDS: RisperiDONE 3 MG TABLET PO SCH ×2 (11:39→16:54)
[2019-10-31] MEDS: DIVALPROEX SODIUM 500 MG ER TABLET PO SCH ×2 (11:39→16:54)
[2019-10-31 16:30] VITALS: BP 117/62
[2019-11-01 07:43] LABS: ANION GAP 9 mmol/L (8-16); CALCIUM, TOTAL 8.9 mg/dL (8.8-10.5); CARBON DIOXIDE 23 mmol/L (22-29); CHLORIDE 106 mmol/L (98-107); GLOMERULAR FILTR. RATE CALC > 60 mL/min (>60); GLUCOSE,RANDOM 124 mg/dL (70-110); POTASSIUM 3.6 mmol/L (3.5-5.1); SODIUM SERUM 138 mmol/L (136-145); UREA NITROGEN, BLOOD 13 mg/dL (7-18)
[2019-11-01 08:54] VITALS: BP 133/86
[2019-11-01] MEDS: DIVALPROEX SODIUM 500 MG ER TABLET PO SCH ×2 (09:11→16:29)
[2019-11-01] MEDS: LORazepam 2 MG TABLET PO PRN (09:11)
[2019-11-01] MEDS: RisperiDONE 3 MG TABLET PO SCH ×2 (09:11→16:29)
[2019-11-01] MEDS: NICOTINE 7 MG/24 HOUR PATCH TD SCH (09:12)
[2019-11-01 16:19] VITALS: BP 140/87
[2019-11-02 08:00] VITALS: BP 116/63
[2019-11-02] MEDS: RisperiDONE 3 MG TABLET PO SCH ×2 (09:10→16:20)
[2019-11-02] MEDS: LORazepam 2 MG TABLET PO PRN (09:10)
[2019-11-02] MEDS: DIVALPROEX SODIUM 500 MG ER TABLET PO SCH ×2 (09:10→16:20)
[2019-11-02] MEDS: NICOTINE 7 MG/24 HOUR PATCH TD SCH (09:10)
[2019-11-02 21:32] VITALS: BP 105/75
[2019-11-03 00:30] VITALS: BP 124/70
[2019-11-03 08:00] VITALS: BP 132/86
[2019-11-03] MEDS: RisperiDONE 3 MG TABLET PO SCH (08:50)
[2019-11-03] MEDS: DIVALPROEX SODIUM 500 MG ER TABLET PO SCH (08:50)
[2019-11-03] MEDS: NICOTINE 7 MG/24 HOUR PATCH TD SCH (08:51)
[2019-11-03] MEDS ORDERED: RISP3 PO (13:11)
[2019-11-03] MEDS ORDERED: DIVA500T52 PO (13:11)
== END 2019-11-03 14:30 | disposition home or self-care (01) | DRG 885 ==
LOC: EMS 08:39 → 3EC 17:24
PROVIDERS: ADMIT Psychiatry & Neurology Psychiatry; ATTEND Psychiatry & Neurology Psychiatry
DX: F20.9 Schizophrenia, unspecified (principal); F12.90 Cannabis use, unspecified, uncomplicated; E87.6 Hypokalemia; D64.9 Anemia, unspecified; F17.210 Nicotine dependence, cigarettes, uncomplicated; I10 Essential (primary) hypertension; Z59.0 Homelessness
CPT/HCPCS: 80074; 84439; 84443; 87086; G0480

== ENCOUNTER 2020-11-14 21:59 | Emergency (ER) | payer MEDICAID, OTHER ==
[~2020-11-14] VITALS: Ht 160 cm; Wt 56.8 kg
[~2020-11-14 21:59] MED LIST changes: -DIVA-78 PO; +DIVA-80 PO; -QUET200T PO; -RISP3 PO; +RISP3TAB35 PO
[2020-11-14 22:17] VITALS: BP 125/72
[2020-11-14] MEDS ORDERED: RisperiDONE 1 MG TABLET PO ONE (23:30)
== END 2020-11-14 23:52 | disposition home or self-care (01) ==
LOC: EMS 21:59
DX: F20.9 Schizophrenia, unspecified (principal); F41.9 Anxiety disorder, unspecified; F31.9 Bipolar disorder, unspecified; F17.210 Nicotine dependence, cigarettes, uncomplicated; F12.90 Cannabis use, unspecified, uncomplicated
CPT/HCPCS: 99283

== ENCOUNTER 2020-11-22 15:15 | Emergency (ER) | payer OTHER ==
[~2020-11-22] VITALS: Ht 160 cm; Wt 54.5 kg
[2020-11-22] MEDS ORDERED: LORazepam 2 MG/ML VIAL IM ONE (16:30)
[2020-11-22] MEDS ORDERED: HALOPERIDOL LACTATE 5 MG/ML VIAL IM ONE (16:30)
[2020-11-22] MEDS ORDERED: HALOPERIDOL 5 MG TABLET PO ONE (18:45)
[2020-11-22] MEDS ORDERED: LORazepam 2 MG TABLET PO ONE (18:45)
[2020-11-22 20:18] LABS: COVID AG,FIA SOURCE NASOPHARYNGEAL
[2020-11-23] MEDS: IBUPROFEN 600 MG TABLET PO ONE ×2 (03:07→03:13)
[2020-11-23 06:15] VITALS: BP 114/70
== END 2020-11-23 10:20 | disposition home or self-care (01) ==
LOC: EMS 15:24
DX: F20.9 Schizophrenia, unspecified (principal); F41.9 Anxiety disorder, unspecified; F31.9 Bipolar disorder, unspecified; F17.210 Nicotine dependence, cigarettes, uncomplicated; F12.90 Cannabis use, unspecified, uncomplicated; Z20.822 Contact with and (suspected) exposure to COVID-19; Z59.0 Homelessness
CPT/HCPCS: 99285; Z7502; Z7610

== ENCOUNTER 2020-12-20 20:54 | Emergency (ER) | payer OTHER ==
[~2020-12-20] VITALS: Ht 160 cm; Wt 60.9 kg
[2020-12-20 23:35] VITALS: BP 126/80
== END 2020-12-21 00:07 | disposition home or self-care (01) ==
LOC: EMS 20:54
DX: F31.9 Bipolar disorder, unspecified (principal); F20.9 Schizophrenia, unspecified; Z76.0 Encounter for issue of repeat prescription
CPT/HCPCS: 82962; 99283

== ENCOUNTER 2021-08-20 14:48 | Inpatient (IN) | payer MEDICAID, OTHER ==
[~2021-08-20] VITALS: Ht 160 cm; Wt 49.9 kg
[2021-08-20] MEDS ORDERED: LORazepam 1 MG TABLET PO ONE (16:30)
[2021-08-20] MEDS ORDERED: HALOPERIDOL 5 MG TABLET PO ONE (16:30)
[2021-08-20] MEDS ORDERED: DiphenhydrAMINE HCL 25 MG CAPSULE PO ONE (16:30)
[2021-08-20] MEDS ORDERED: ZOLPIDEM TARTRATE 10 MG TABLET PO PRN (17:00)
[2021-08-20] MEDS ORDERED: HALOPERIDOL 5 MG TABLET PO PRN (17:00)
[2021-08-20] MEDS ORDERED: IBUPROFEN 600 MG TABLET PO ONE (17:15)
[2021-08-20 18:15] LABS: EOSINOPHILS % (AUTO) 1.1 % (1.0-6.0); HEMATOCRIT 33.3 % (36-46); HEMOGLOBIN 11.5 g/dL (12.0-16.0); LYMPHOCYTES # (AUTO) 2.5 K/uL (1.0-4.8); LYMPHOCYTES % (AUTO) 53.4 % (22.0-44.0); MEAN CORPUSCULAR HEMOGLOBIN 31.5 pg (26.0-34.0); MEAN CORPUSCULAR HGB CONC 34.5 G/dL (31.0-37.0); MEAN CORPUSCULAR VOLUME 91 fL (80-100); MONOCYTES # (AUTO) 0.4 K/uL (0.1-1.0); MONOCYTES % (AUTO) 8.8 % (2.0-9.0); NEUTROPHILS # (AUTO) 1.7 K/uL (1.8-7.7); NEUTROPHILS % (AUTO) 35.7 % (40.0-70.0); PLATELET COUNT (AUTO) 292 K/uL (150-450); RED BLOOD CELL COUNT(AUTO) 3.65 MIL/uL (4.00-5.20); RED CELL DISTRIBUTION WIDTH 13.9 % (11.5-14.5)
[2021-08-20 18:25] LABS: COVID AG,FIA SOURCE NASAL SWAB
[2021-08-20 18:25] LABS: ANION GAP 12 mmol/L (8-16); CALCIUM, TOTAL 8.9 mg/dL (8.8-10.5); CARBON DIOXIDE 24 mmol/L (22-29); CHLORIDE 101 mmol/L (98-107); CREATININE 0.58 mg/dL (0.60-1.30); GLUCOSE,RANDOM 89 mg/dL (70-110); POTASSIUM 3.6 mmol/L (3.5-5.1); SODIUM SERUM 137 mmol/L (136-145); UREA NITROGEN, BLOOD 17 mg/dL (7-18)
[2021-08-20 18:28] LABS: GLOMERULAR FILTR. RATE CALC > 60 mL/min (>60)
[2021-08-20 18:33] LABS: ALANINE AMINOTRANSFERASE 54 U/L (12-78); ALBUMIN 3.6 g/dL (3.4-5.0); ALKALINE PHOSPHATASE 96 U/L (46-116); ASPARTATE AMINOTRANSFERASE 45 U/L (15-37); BILIRUBIN,TOTAL 0.5 mg/dL (0.1-1.0); TOTAL PROTEIN, SERUM 7.8 g/dL (6.4-8.2)
[2021-08-20 21:55] VITALS: BP 119/87
[2021-08-20] MEDS ORDERED: INFLUENZA VIRUS VACCINE QVS 2021-22 (6MO+)/PF 60 MCG/0.5 ML SYRINGE IM. ONE (23:00)
[2021-08-21 06:01] VITALS: BP 111/62
[2021-08-21] MEDS ORDERED: GuaiFENesin/D-METHORPHAN [SUGAR-FREE] 200-20MG/10 ML SYRUP UDCUP PO PRN (06:30)
[2021-08-21] MEDS ORDERED: ACETAMINOPHEN 325 MG TABLET PO PRN (06:30)
[2021-08-21] MEDS ORDERED: LOPERAMIDE HCL 2 MG CAPSULE PO PRN (06:30)
[2021-08-21] MEDS ORDERED: CloNIDine HCL 0.1 MG TABLET PO PRN (06:30)
[2021-08-21] MEDS ORDERED: ONDANSETRON HCL 4 MG TABLET PO PRN (06:30)
[2021-08-21] MEDS ORDERED: NICOTINE 14 MG/24 HOUR PATCH TD PRN (06:30)
[2021-08-21] MEDS ORDERED: MAGNESIUM HYDROXIDE SUSPENSION 30 ML UDCUP PO PRN (06:30)
[2021-08-21] MEDS ORDERED: ALBUTEROL SULFATE HFA 90 MCG/PUFF 8 GM INHALER IH PRN (06:30)
[2021-08-21] MEDS ORDERED: MAG HYDROX/AL HYDROX/SIMETH ES 30 ML SUSPENSION UDCUP PO PRN (06:30)
[2021-08-21] MEDS ORDERED: PETROLATUM,WHITE 28 GM JELLY TP PRN (06:30)
[2021-08-21] MEDS ORDERED: DOCUSATE SODIUM 100 MG CAPSULE PO PRN (06:30)
[2021-08-21 08:05] VITALS: BP 109/72
[2021-08-21] MEDS: LORazepam 2 MG TABLET PO PRN (09:01)
[2021-08-21] MEDS: IBUPROFEN 400 MG TABLET PO PRN (09:01)
[2021-08-21 16:05] VITALS: BP 102/62
[2021-08-21] MEDS: DIVALPROEX SODIUM 500 MG DR TABLET PO SCH (17:27)
[2021-08-21] MEDS: RisperiDONE 3 MG TABLET PO SCH (20:30)
[2021-08-22 00:43] VITALS: BP 104/65
[2021-08-22] MEDS: DIVALPROEX SODIUM 500 MG DR TABLET PO SCH ×2 (08:16→16:01)
[2021-08-22] MEDS: RisperiDONE 3 MG TABLET PO SCH ×2 (08:16→20:51)
[2021-08-22 08:24] VITALS: BP 106/65
[2021-08-22] MEDS: LORazepam 2 MG TABLET PO PRN (10:52)
[2021-08-22 16:01] VITALS: BP 106/66
[2021-08-23 00:28] VITALS: BP 107/63
[2021-08-23 08:04] VITALS: BP 119/71
[2021-08-23] MEDS: RisperiDONE 3 MG TABLET PO SCH ×2 (08:07→20:19)
[2021-08-23] MEDS: DIVALPROEX SODIUM 500 MG DR TABLET PO SCH ×2 (08:07→16:00)
[2021-08-23 15:40] VITALS: BP 113/70
[2021-08-23] MEDS: LORazepam 2 MG TABLET PO PRN (15:43)
[2021-08-23 17:46] VITALS: BP 127/62
[2021-08-24 00:10] VITALS: BP 120/72
[2021-08-24 08:08] VITALS: BP 113/66
[2021-08-24] MEDS: RisperiDONE 3 MG TABLET PO SCH ×2 (08:18→20:11)
[2021-08-24] MEDS: DIVALPROEX SODIUM 500 MG DR TABLET PO SCH ×2 (08:18→16:12)
[2021-08-24 16:09] VITALS: BP 103/54
[2021-08-25 00:31] VITALS: BP 104/62
[2021-08-25 08:05] VITALS: BP 113/68
[2021-08-25] MEDS: DIVALPROEX SODIUM 500 MG DR TABLET PO SCH ×2 (08:10→16:00)
[2021-08-25] MEDS: LORazepam 2 MG TABLET PO PRN (08:11)
[2021-08-25] MEDS: RisperiDONE 3 MG TABLET PO SCH ×2 (08:11→20:05)
[2021-08-25 13:22] LABS: GLUCOMETER DEV NAME(LOC) POC.BV
[2021-08-25 16:05] VITALS: BP 105/61
[2021-08-26 00:36] VITALS: BP 103/62
[2021-08-26 04:58] VITALS: BP 106/62
[2021-08-26] MEDS: IBUPROFEN 400 MG TABLET PO PRN (05:08)
[2021-08-26] MEDS: RisperiDONE 3 MG TABLET PO SCH ×2 (08:07→20:30)
[2021-08-26] MEDS: LORazepam 2 MG TABLET PO PRN (08:07)
[2021-08-26] MEDS: DIVALPROEX SODIUM 500 MG DR TABLET PO SCH ×2 (08:07→16:34)
[2021-08-26 08:12] VITALS: BP 109/73
[2021-08-26 16:03] VITALS: BP 119/68
[2021-08-27 03:51] VITALS: BP 124/72
[2021-08-27 08:32] VITALS: BP 103/63
[2021-08-27] MEDS: MULTIVITAMINS WITH MINERALS, THERAPEUTIC TABLET PO SCH (09:00)
[2021-08-27] MEDS: DIVALPROEX SODIUM 500 MG DR TABLET PO SCH ×2 (09:00→16:04)
[2021-08-27] MEDS: RisperiDONE 3 MG TABLET PO SCH ×2 (09:00→20:09)
[2021-08-27 16:05] VITALS: BP 103/67
[2021-08-27] MEDS: ACETAMINOPHEN 325 MG TABLET PO PRN (17:31)
[2021-08-28 00:40] VITALS: BP 102/64
[2021-08-28 04:34] VITALS: BP 105/62
[2021-08-28] MEDS: LORazepam 2 MG TABLET PO PRN (04:45)
[2021-08-28] MEDS: IBUPROFEN 400 MG TABLET PO PRN (04:46)
[2021-08-28 08:06] VITALS: BP 104/59
[2021-08-28] MEDS: MULTIVITAMINS WITH MINERALS, THERAPEUTIC TABLET PO SCH (08:15)
[2021-08-28] MEDS: DIVALPROEX SODIUM 500 MG DR TABLET PO SCH ×2 (08:15→16:12)
[2021-08-28] MEDS: RisperiDONE 3 MG TABLET PO SCH ×2 (08:15→20:09)
[2021-08-28 16:04] VITALS: BP 109/57
[2021-08-29 01:45] VITALS: BP 101/65
[2021-08-29] MEDS: MULTIVITAMINS WITH MINERALS, THERAPEUTIC TABLET PO SCH (08:11)
[2021-08-29] MEDS: RisperiDONE 3 MG TABLET PO SCH ×2 (08:11→20:07)
[2021-08-29] MEDS: DIVALPROEX SODIUM 500 MG DR TABLET PO SCH ×2 (08:11→16:04)
[2021-08-29 08:59] VITALS: BP 108/66
[2021-08-29 16:04] VITALS: BP 106/68
[2021-08-30 00:55] VITALS: BP 102/64
[2021-08-30] MEDS: ACETAMINOPHEN 325 MG TABLET PO PRN (03:40)
[2021-08-30] MEDS: DIVALPROEX SODIUM 500 MG DR TABLET PO SCH ×2 (08:29→16:25)
[2021-08-30] MEDS: RisperiDONE 3 MG TABLET PO SCH ×2 (08:29→20:09)
[2021-08-30] MEDS: MULTIVITAMINS WITH MINERALS, THERAPEUTIC TABLET PO SCH (08:29)
[2021-08-30 09:36] VITALS: BP 118/67
[2021-08-30 16:12] VITALS: BP 110/67
[2021-08-31 00:22] VITALS: BP 106/64
[2021-08-31] MEDS: MULTIVITAMINS WITH MINERALS, THERAPEUTIC TABLET PO SCH (08:16)
[2021-08-31] MEDS: DIVALPROEX SODIUM 500 MG DR TABLET PO SCH ×2 (08:16→16:33)
[2021-08-31] MEDS: RisperiDONE 3 MG TABLET PO SCH ×2 (08:16→20:30)
[2021-08-31 08:26] VITALS: BP 102/68
[2021-08-31 16:03] VITALS: BP 100/61
[2021-09-01 05:25] VITALS: BP 102/72
[2021-09-01] MEDS: RisperiDONE 3 MG TABLET PO SCH ×2 (08:02→20:08)
[2021-09-01] MEDS: DIVALPROEX SODIUM 500 MG DR TABLET PO SCH ×2 (08:02→16:35)
[2021-09-01] MEDS: MULTIVITAMINS WITH MINERALS, THERAPEUTIC TABLET PO SCH (08:02)
[2021-09-01 08:07] VITALS: BP 99/61
[2021-09-01 16:10] VITALS: BP 110/60
[2021-09-02 04:00] VITALS: BP 101/60
[2021-09-02] MEDS: DIVALPROEX SODIUM 500 MG DR TABLET PO SCH ×2 (08:11→16:43)
[2021-09-02] MEDS: MULTIVITAMINS WITH MINERALS, THERAPEUTIC TABLET PO SCH (08:11)
[2021-09-02] MEDS: RisperiDONE 3 MG TABLET PO SCH ×2 (08:11→20:12)
[2021-09-02 08:21] VITALS: BP 111/62
[2021-09-02 16:05] VITALS: BP_SYST 10; BP_SYST 108; BP_DIAS 53
[2021-09-02] MEDS: ACETAMINOPHEN 325 MG TABLET PO PRN (16:45)
[2021-09-03 05:32] VITALS: BP 109/62
[2021-09-03] MEDS: MULTIVITAMINS WITH MINERALS, THERAPEUTIC TABLET PO SCH (08:36)
[2021-09-03] MEDS: RisperiDONE 3 MG TABLET PO SCH ×2 (08:36→20:04)
[2021-09-03] MEDS: DIVALPROEX SODIUM 500 MG DR TABLET PO SCH ×2 (08:36→16:43)
[2021-09-03 09:18] VITALS: BP 105/60
[2021-09-03 16:03] VITALS: BP 101/51
[2021-09-04 01:12] VITALS: BP 102/61
[2021-09-04 08:02] VITALS: BP 125/64
[2021-09-04] MEDS: DIVALPROEX SODIUM 500 MG DR TABLET PO SCH ×2 (08:32→16:35)
[2021-09-04] MEDS: RisperiDONE 3 MG TABLET PO SCH ×2 (08:32→20:38)
[2021-09-04] MEDS: MULTIVITAMINS WITH MINERALS, THERAPEUTIC TABLET PO SCH (08:32)
[2021-09-04 16:06] VITALS: BP 104/65
[2021-09-05 00:13] VITALS: BP 107/62
[2021-09-05 07:21] LABS: BASOPHILS % (AUTO) 1.2 % (0.0-2.0); HEMATOCRIT 35.1 % (36-46); HEMOGLOBIN 11.8 g/dL (12.0-16.0); LYMPHOCYTES # (AUTO) 2.7 K/uL (1.0-4.8); LYMPHOCYTES % (AUTO) 53.5 % (22.0-44.0); MEAN CORPUSCULAR HEMOGLOBIN 31.2 pg (26.0-34.0); MEAN CORPUSCULAR HGB CONC 33.7 G/dL (31.0-37.0); MEAN CORPUSCULAR VOLUME 93 fL (80-100); MONOCYTES # (AUTO) 0.5 K/uL (0.1-1.0); MONOCYTES % (AUTO) 10.5 % (2.0-9.0); NEUTROPHILS # (AUTO) 1.7 K/uL (1.8-7.7); NEUTROPHILS % (AUTO) 33.8 % (40.0-70.0); PLATELET COUNT (AUTO) 294 K/uL (150-450); RED CELL DISTRIBUTION WIDTH 14.1 % (11.5-14.5)
[2021-09-05 07:56] LABS: ALANINE AMINOTRANSFERASE 58 U/L (12-78); ALBUMIN 2.8 g/dL (3.4-5.0); ALKALINE PHOSPHATASE 79 U/L (46-116); ANION GAP 8 mmol/L (8-16); ASPARTATE AMINOTRANSFERASE 39 U/L (15-37); BILIRUBIN,TOTAL 0.2 mg/dL (0.1-1.0); CALCIUM, TOTAL 8.8 mg/dL (8.8-10.5); CARBON DIOXIDE 25 mmol/L (22-29); CHLORIDE 107 mmol/L (98-107); CREATININE 0.43 mg/dL (0.60-1.30); GLUCOSE,RANDOM 91 mg/dL (70-110); POTASSIUM 3.8 mmol/L (3.5-5.1); SODIUM SERUM 140 mmol/L (136-145); TOTAL PROTEIN, SERUM 6.9 g/dL (6.4-8.2); UREA NITROGEN, BLOOD 16 mg/dL (7-18); VALPROIC ACID 61 mcg/mL (50-100)
[2021-09-05 07:59] LABS: GLOMERULAR FILTR. RATE CALC > 60 mL/min (>60)
[2021-09-05] MEDS: MULTIVITAMINS WITH MINERALS, THERAPEUTIC TABLET PO SCH (08:06)
[2021-09-05] MEDS: DIVALPROEX SODIUM 500 MG DR TABLET PO SCH (08:06)
[2021-09-05] MEDS: RisperiDONE 3 MG TABLET PO SCH (08:06)
[2021-09-05] MEDS ORDERED: DIVA-112 PO (10:35)
[2021-09-05] MEDS ORDERED: RISP3TAB63 PO (10:35)
== END 2021-09-05 12:00 | disposition left against medical advice (07) | DRG 750 ==
LOC: EMS 14:55 → B2S 18:39
PROVIDERS: ADMIT Psychiatry & Neurology Child & Adolescent Psychiatry; ATTEND Psychiatry & Neurology Child & Adolescent Psychiatry
DX: F20.0 Paranoid schizophrenia (principal); Z59.00 Homelessness unspecified; D64.9 Anemia, unspecified; F10.10 Alcohol abuse, uncomplicated; F31.9 Bipolar disorder, unspecified; G47.00 Insomnia, unspecified; F41.9 Anxiety disorder, unspecified; R74.01 Elevation of levels of liver transaminase levels; Z20.822 Contact with and (suspected) exposure to COVID-19; Z87.891 Personal history of nicotine dependence; Z79.899 Other long term (current) drug therapy
CPT/HCPCS: 80053; 80164; 85025; 90686; G0480